=== PATIENT | female | born 1965 | race Caucasian/White ===

== ENCOUNTER 2024-09-21 22:44 | Inpatient (IN) | payer OTHER ==
[2024-09-22] MEDS ORDERED: Acetaminophen 650 MG Suppository PR PRN (04:12)
[2024-09-22] MEDS ORDERED: Calcium Carbonate 500 MG ChewTAB PO PRN (04:12)
[2024-09-22] MEDS ORDERED: Ondansetron ODT 4 MG TAB PO PRN (04:12)
[2024-09-22] MEDS ORDERED: Ondansetron PF 4 MG/2 ML Vial IVP PRN (04:12)
[2024-09-22 05:03] LABS: #Basophils Less than 0.03 10x3/uL (0.0-0.2); %Basophils 0.3 % (0.0-1.0); %Eosinophils 0.6 % (0.0-10.0); %Lymphocytes 13.7 % (21.0-51.0); %Monocytes 14.6 % (0.0-10.0); %Neutrophils 70.6 % (42.0-75.0); Hemoglobin 11.7 g/dL (12.0-16.0); Mean Corpuscular HGB CONC 34.4 g/dL (32.0-36.0); Mean Corpuscular Hemoglobin 29.7 pg (27.0-31.0); Mean Corpuscular Volume 86.3 fL (78.0-98.0); Mean Platelet Volume 9.4 fL (7.4-10.4); Platelet Count 237 10x3/uL (130-400); RBC Distribution Width 12.2 % (11.5-14.5); Red Blood Cell (RBC) Count 3.94 mill/uL (4.20-5.40)
[2024-09-22 05:19] LABS: Anion Gap 12 mmol/L (10-20); BUN (Urea Nitrogen) 8 mg/dL (9.8-20.1); Calc. Creatinine Clearance 170 mL/min (70-130); Calcium 8.4 mg/dL (7.8-10.44); Carbon Dioxide 24 mmol/L (22-29); Chloride 90 mmol/L (98-107); Estimated GFR 103; Glucose 115 mg/dL (70-105); Potassium 4.2 mmol/L (3.5-5.1); Sodium 122 mmol/L (136-145)
[2024-09-22] MEDS: Famotidine 20 MG TAB PO SCH (09:14)
[2024-09-22] MEDS: Famotidine/PF 20 mg/2ml Vial SLOW IVP SCH (09:15)
[2024-09-22] MEDS: Acetaminophen 325 MG TAB PO PRN (14:10)
[2024-09-22] MEDS: Guaifenesin DM 100-10/5 ML UDCUP PO PRN (14:10)
[2024-09-22] MEDS: Ketorolac Tromethamine 30 MG (1 mL) VIAL IVP PRN (19:53)
[2024-09-22] MEDS: guaiFENesin ER 600 MG TAB PO SCH (19:56)
[2024-09-22] MEDS: Atenolol 50 MG TAB PO SCH (19:56)
[2024-09-22] MEDS: Oseltamivir 75 MG CAP PO SCH (19:56)
[2024-09-22] MEDS: Simvastatin 10 MG TAB PO SCH (19:56)
[2024-09-22] MEDS ORDERED: Pravastatin Sodium 20 MG TAB PO SCH (21:00)
[2024-09-22] MEDS: Albuterol 2.5 MG (3 mL) NEB NEB PRN (21:42)
[2024-09-22] MEDS: Benzonatate 100 MG CAP PO SCH (22:08)
[2024-09-23 05:03] VITALS: BMI 41.2
[2024-09-23 06:34] LABS: #Basophils 0.03 10x3/uL (0.0-0.2); #Eosinophils Less than 0.03 10x3/uL (0.0-0.7); %Basophils 0.5 % (0.0-1.0); %Lymphocytes 24.5 % (21.0-51.0); %Monocytes 13.4 % (0.0-10.0); %Neutrophils 61.2 % (42.0-75.0); Hemoglobin 11.6 g/dL (12.0-16.0); Mean Corpuscular HGB CONC 34.1 g/dL (32.0-36.0); Mean Corpuscular Hemoglobin 29.7 pg (27.0-31.0); Mean Corpuscular Volume 87.2 fL (78.0-98.0); Mean Platelet Volume 9.7 fL (7.4-10.4); Platelet Count 261 10x3/uL (130-400); RBC Distribution Width 12.4 % (11.5-14.5)
[2024-09-23 06:52] LABS: Anion Gap 11 mmol/L (10-20); BUN (Urea Nitrogen) 9 mg/dL (9.8-20.1); Calc. Creatinine Clearance 133 mL/min (70-130); Calcium 8.7 mg/dL (7.8-10.44); Carbon Dioxide 25 mmol/L (22-29); Chloride 95 mmol/L (98-107); Estimated GFR 86; Glucose 118 mg/dL (70-105); Potassium 4.3 mmol/L (3.5-5.1); Sodium 127 mmol/L (136-145)
[2024-09-23 07:37] VITALS: BP 115/71; TEMP 98.8
[2024-09-23 13:05] LABS: Anion Gap 12 mmol/L (10-20); BUN (Urea Nitrogen) 10 mg/dL (9.8-20.1); Calc. Creatinine Clearance 129 mL/min (70-130); Calcium 8.7 mg/dL (7.8-10.44); Carbon Dioxide 27 mmol/L (22-29); Chloride 94 mmol/L (98-107); Estimated GFR 82; Glucose 133 mg/dL (70-105); Potassium 4.5 mmol/L (3.5-5.1); Sodium 128 mmol/L (136-145)
== END 2024-09-23 15:58 | disposition home or self-care (01) | DRG 641 ==
LOC: T4-A 22:44 → OBSVTOIN 09-22 09:24
PROVIDERS: ADMIT Student in an Organized Health Care Education/Training Program; ATTEND Internal Medicine
DX: E87.1 Hypo-osmolality and hyponatremia (principal); J10.1 Influenza due to other identified influenza virus with other respiratory manifestations; I10 Essential (primary) hypertension; F17.210 Nicotine dependence, cigarettes, uncomplicated; Z88.0 Allergy status to penicillin; Z88.1 Allergy status to other antibiotic agents; Z88.5 Allergy status to narcotic agent; Z90.49 Acquired absence of other specified parts of digestive tract; Z98.51 Tubal ligation status; Z98.890 Other specified postprocedural states
CPT/HCPCS: 36415; 80048; 84300; 85025; 94640; G0378; J1885; J7611